=== PATIENT | male | born 1945 ===

== ENCOUNTER → 2018-07-02 21:25 | Outpatient (REF) | payer MEDICARE, SELFPAY ==
[2018-07-02 21:56] LABS: Hematocrit 46.2 % (41-53); Hemoglobin 16.2 g/dL (13.5-17.5); Mean Corpuscular Hemoglobin 33.9 PG (26-34); Mean Corpuscular Volume 96.9 fL (80-100); Platelet Count 212 X10^3/uL (150-400); Red Blood Cell Count 4.77 X10^6/uL (4.5-5.9); Red Cell Distribution Width 12.5 % (11.6-14.8); White Blood Cell Count 5.8 X10^3/uL (4.5-11.0)
[2018-07-02 21:57] LABS: Add Manual Diff / Slide Review YES
[2018-07-02 22:15] LABS: Neutrophils Absolute Manual 4002 /uL (3000-5900); RBC Morphology Normal Morphology; Total Cells Counted 100
[2018-07-02 22:27] LABS: Hemoglobin A1C% w Est Avg Glu 5.6 % (4.0-6.0)
[2018-07-02 22:28] LABS: Alanine Aminotransferase 34 IU/L (21-72); Albumin 4.3 g/dL (3.5-5.0); Albumin Globulin Ratio 1.7 (1.0-2.8); Alkaline Phosphatase 64 U/L (38-126); Aspartate Aminotransferase 22 IU/L (17-59); BUN Creatinine Ratio 21.3 (6-22); Bilirubin Total 1.1 mg/dL (0.2-1.3); Blood Urea Nitrogen 17 mg/dL (9-20); Calcium 9.1 mg/dL (8.4-10.2); Carbon Dioxide 29 mmol/L (22-32); Chloride 95 mmol/L (98-107); Cholesterol 217 mg/dL (140-199); Estimated Glomerular Filt Rate > 60.0 mL/min (>60); Globulin 2.6 g/dL (1.7-4.1); Glucose 133 mg/dL (80-110); HDL Cholesterol 45 mg/dL (40-60); HEMOLYSIS < 15 (0-50); LDL Cholesterol Calculated 132 mg/dL (<100); Potassium 4.4 mmol/L (3.4-5.1); Sodium 145 mmol/L (137-145); Total Protein 6.9 g/dL (6.3-8.2); Triglycerides 202 mg/dL (35-150)
[2018-07-05 14:15] LABS: Sex Hormone Binding Globulin 24 nmol/L (22-77)
[2018-07-05 16:07] LABS: Estradiol 40 pg/mL (< 40)
[2018-07-06 14:04] LABS: PSA Total 1.28 ng/mL (< 4.01)
[2018-07-07 19:36] LABS: Testosterone Free 66.2 pg/mL (30.0-135.0); Testosterone Total 300 ng/dL (250-1100)
== END ==
LOC: LAB 21:25
PROVIDERS: Visit Provider Naturopath
DX: E78.5 Hyperlipidemia, unspecified (principal)
CPT/HCPCS: 80053; 80061; 82670; 83036; 84153; 84154; 84270; 84402; 84403; 85025